=== PATIENT | female | born 1965 | race Caucasian/White ===

== ENCOUNTER → 2016-06-15 | Outpatient (CLI) | payer OTHER ==
[~2016-06-15] MED LIST: B-COMPLEX W/1 TAB.SA PO; CLARITIN10 MG PO; FIORICET W/CODE1 CAP PO; FLEXERIL10 MG PO; HYDROCODON-ACE1 EACH PO; LEVOTHYROXINE25 MCG PO; METHOCARBAMOL500 MG PO; MULTIPLE VITAMI1 T12 PO; NAPROSYN375 MG PO; NAPROSYN500 MG PO; REFRESH15 ML OP; VITAMIN D250000 UNIT PO; [UNRECOGNIZED DRUG - OTHER]
--- NOTE | ~2016-06-15 | MY11 ---
[facility] A Service of [facility] RADIOLOGY TEXT RESULTS PATIENT: LARA BOOTHE LOCATION: [facility] #: [id number] : 63 UNIT #: [id number] AGE: [address]: CATRINA RUTLEDGE MD SEX: F ORDER DR: [id number] [place] [id number] O MR#: [id number] Acc #: [id number] NAME: LARA BOOTHE : 1965 SEX: F STUDY DATE/TIME: 06/15/2016 11:00 UNIT: [facility] ROOM: STUDY DESCRIPTION: MY Mammogram Screening Dig Jeremy Attending Physician: Catrina Rutledge M.D. Referring Physician: Catrina Rutledge M.D. Ordering Physician: Carter Cadet Primary Care Physician: Catrina Rutledge M.D. MEDICAL IMAGING REPORT This report is preliminary unless electronic signature is present. EXAM Digital screening mammogram with CAD INDICATIONS Routine screening PROCEDURE Bilateral CC and MLO views obtained on a digital mammography unit. FDA-approved CAD device was utilized. COMPARISON 12/06/2014 FINDINGS The breasts are extremely dense bilaterally. Similar parenchymal pattern. This lowers the sensitivity of mammography. There is no dominant mass or suspicious calcification. IMPRESSION 1. Negative screening mammogram. 2. Extremely dense breasts but overall similar parenchymal pattern. Patient may benefit from breast tomosynthesis at the time of next screening. Patient's over the age of 40 are entered into a reminder system with target due date for the next mammogram. A result letter will be sent to the patient. BIRADS: 1 Negative Dictated by... [facility] A Service [facility] RADIOLOGY TEXT RESULTS PATIENT: LARA BOOTHE LOCATION: [facility] #: [id number] : 63 UNIT #: [id number] AGE: [address]: CATRINA RUTLEDGE MD SEX: F ORDER DR: Ramos Guerra M.D. THIS IS AN ELECTRONICALLY VERIFIED REPORT Ramos Guerra M.D. at 06/16/2016 7:08 AM LAKSHMID/jordi TD: 06/15/2016 12:41 JOB #: [id number] MEDICAL IMAGING REPORT
== END | disposition home or self-care (01) ==
LOC: SMAM 10:25
DX: Z12.31 Encounter for screening mammogram for malignant neoplasm of breast (principal)
CPT/HCPCS: G0202